=== PATIENT | male | born 1980 | race African-American/Black ===

== ENCOUNTER 2018-12-07 19:03 | Emergency (ER) | payer OTHER, SELFPAY ==
[2018-12-07 19:19] VITALS: BP 130/79; PULSE 83; RESP 14; TEMP 36.7; O2SAT 98; BMI 27.8
--- NOTE | 2018-12-07 19:24 | DI.RAD.S_ITS ---
PROCEDURE: XR FOOT RT MIN 3V INDICATIONS: tripped while walking down step. Having pain and swelling TECHNIQUE: 3 views of the foot were acquired. COMPARISON: None. FINDINGS: Bones: No fractures or dislocations. No suspicious bony lesions. Soft tissues: No tibiotalar joint effusion. Achilles tendon appears normal. IMPRESSION: No fracture. No osseous lesion. If symptoms and/or clinical suspicion for pathology persists, further assessment with repeat radiographs (7-10 days) or advanced imaging (e.g. CT, MRI or bone scan) may be helpful. Dictated by: Ines Cutler MD, PhD on 12/07/2018 at 19:51 Approved by: Ines Cutler MD, PhD on 12/07/2018 at 19:52
[2018-12-07] MEDS: KETOROLAC 60 MG/2 ML VIAL IM (20:11)
[2018-12-07 20:37] VITALS: RESP 16
--- NOTE | 2018-12-07 20:56 | ED.LOWEXIN ---
HPI - Extremity Injury (Lower) <DARIANA Arias - Last Filed: 12/07/18 20:59> General Chief Complaint: Extremity Injury, Lower Stated Complaint: RIGHT FOOT SMALL TOE INJURY Time Seen by Provider: 12/07/18 19:44 Source: patient and family Mode of arrival: ambulatory Limitations: no limitations History of Present Illness HPI Narrative: The patient is a 38-year-old current smoker with history of right foot surgery who presents with a chief complaint of foot pain. It started on Friday, he was going down the stairs in slide shoes and felt his foot twist. He felt a pop. He has taken some ibuprofen, but nothing today. He is concerned about a fracture. He denies any numbness or tingling. Denies any other injury. Related Data Home Medications Medication Instructions Recorded Confirmed bupropion HCl 300 mg PO QDAY #0 09/26/16 gabapentin 100 mg PO QDAY #0 09/26/16 sertraline [Zoloft] #0 09/26/16 trazodone 50 mg PO QDAY #0 09/26/16 Allergies Allergy/AdvReac Type Severity Reaction Status Date / Time No Known Drug Allergies Allergy Verified 12/07/18 19:24 Review of Systems <DARIANA Arias - Last Filed: 12/07/18 20:59> Review of Systems GENERAL: Denies chills, fatigue, malaise, fever, sweats. HEENT: Denies sinus pain, ear pain, sore throat, difficulty swallowing, dizziness. RESPIRATORY: Denies dyspnea, cough, wheezing, hemoptysis, sputum. CARDIOVASCULAR: Denies chest pain, palpitations, orthopnea, edema, GASTROINTESTINAL: Denies nausea, vomiting, abdominal pain, diarrhea, constipation, melena. : Denies dysuria, frequency, incontinence, hematuria, urinary retention. MUSCULOSKELETAL: See HPI SKIN: See HPI NEUROLOGIC: Denies weakness, headache, numbness, change in speech, confusion, seizures, incoordination. PSYCHIATRIC: No concerning psychosocial issues. 12 point review of systems is negative except for those stated above PFSH <DARIANA Arias - Last Filed: 12/07/18 20:59> Social History Smoking Status: Current every day smoker Social History Smoking Status: Current every day smoker Exam <DARIANA Arias - Last Filed: 12/07/18 20:59> Narrative Exam Narrative: GENERAL: This is a well-nourished, well-developed patient no acute distress HEAD: Atraumatic. Normocephalic. No temporal or scalp tenderness. EYES: Pupils equal round and reactive. Extraocular motions intact. No scleral icterus. No injection or drainage. ENT: Nose without bleeding, purulent drainage or septal hematoma. Throat without erythema, tonsillar hypertrophy or exudate. Uvula midline. Airway patent. NECK: Trachea midline. No JVD or lymphadenopathy. Supple, nontender, no meningeal signs. CARDIOVASCULAR: Regular rate and rhythm RESPIRATORY: No cough. No increased respiratory effort. No accessory muscle use. EXTREMITIES: Pain to palpation of right foot. Positive pedal pulses. Capillary refill less than 2 seconds. SKIN: Ecchymosis noted over navicular of right foot. Skin is intact. No laceration or abrasion. Initial Vital Signs Initial Vital Signs: Vital Signs Temperature 98.1 F 12/07/18 19:19 Pulse Rate 83 12/07/18 19:19 Respiratory Rate 14 12/07/18 19:19 Blood Pressure 130/79 12/07/18 19:19 Pulse Oximetry 98 12/07/18 19:19 <DO Cj Albarado Last Filed: 12/08/18 01:32> Initial Vital Signs Initial Vital Signs: Vital Signs Temperature 98.1 F 12/07/18 19:19 Pulse Rate 83 12/07/18 19:19 Respiratory Rate 14 12/07/18 19:19 Blood Pressure 130/79 12/07/18 19:19 Pulse Oximetry 98 12/07/18 19:19 Course <JOAO Arias-BC - Last Filed: 12/07/18 20:59> Orders Ordered: ED Orders 12/07/18 19:24 XR foot RT min 3V Stat Discontinued Medications Ketorolac Tromethamine (Toradol) 60 mg IM NOW ONE Stop: 12/07/18 19:51 Last Admin: 12/07/18 20:11 Dose: 60 mg Vital Signs - 8 hr 12/07/18 19:19 12/07/18 20:37 Temperature 98.1 F Pulse Rate 83 Respiratory Rate 14 16 Blood Pressure 130/79 Pulse Oximetry 98 <DO Cj Albarado Last Filed: 12/08/18 01:32> Orders Ordered: ED Orders 12/07/18 19:24 XR foot RT min 3V Stat Discontinued Medications Ketorolac Tromethamine (Toradol) 60 mg IM NOW ONE Stop: 12/07/18 19:51 Last Admin: 12/07/18 20:11 Dose: 60 mg Vital Signs - 8 hr 12/07/18 19:19 12/07/18 20:37 Temperature 98.1 F Pulse Rate 83 Respiratory Rate 14 16 Blood Pressure 130/79 Pulse Oximetry 98 MDM - Extremity Injury (Lower) <ERNESTINA Arias - Last Filed: 12/07/18 20:59> Imaging Data Foot x-ray: Radiologist's impression: [address] [address] XRay Report Signed Patient: Elinor Mccracken JMR#: [id number] : 1980Acct:[id number] Age/Sex: 38 / MDate of Service: 12/07/18 Loc: ED Accession Number: [id number] Procedure: XR foot RT min 3V Ordering Provider: Nadir Oneil D.O. PROCEDURE: XR FOOT RT MIN 3V INDICATIONS: tripped while walking down step. Having pain and swelling TECHNIQUE: 3 views of the foot were acquired. COMPARISON: None. FINDINGS: Bones: No fractures or dislocations. No suspicious bony lesions. Soft tissues: No tibiotalar joint effusion. Achilles tendon appears normal. IMPRESSION: No fracture. No osseous lesion. If symptoms and/or clinical suspicion for pathology persists, further assessment with repeat radiographs (7-10 days) or advanced imaging (e.g. CT, MRI or bone scan) may be helpful. Dictated by: Ines Cutler MD, PhD on 12/07/2018 at 19:51 Approved by: Ines Cutler MD, PhD on 12/07/2018 at 19:52 [facility] Narrative Medical decision making narrative: The patient is a 30-year-old male who presents with chief complaint of foot pain. He has a negative x-ray. He is neurovascularly intact. I discussed the possibility of an occult fracture. Encouraged rest ice compression elevation as well as [id number] pain medications as needed and able. Discussed follow-up with PCP. Discussed coming back to the ER for any acute concerns. Patient has no questions or concerns upon discharge. He states understanding of follow-up and return precautions. He is given Toradol in the emergency department for pain. Discharge Plan Departure Patient Disposition: Home Clinical Impression: Acute foot pain Qualifiers: Laterality: right Qualified Code(s): M79.671 - Pain in right foot Discharge Date/Time: 12/07/18 20:37 Interventions: ED Discharge Assessment Last Done: 12/07/18 20:37 Instructions: DI for Contusion, How To Perform RICE (Rest, Ice, Compress, Elevate), DI for Foot Pain Activity Restrictions/Additional Instructions: Your x-ray today came back with no fracture. Be aware there can be an occult fracture. Please use rest ice compression elevation as well as [id number] pain medications as needed And able. Please follow up with primary care provider. Please come back to the emergency department for any acute concerns such as chest pain, shortness of breath etc Prescriptions: No Action sertraline [Zoloft] 100 MG tablet Qty: 0 RF: 0 bupropion HCl 300 MG tablet extended release 24 hr 300 mg PO QDAY Qty: 0 RF: 0 trazodone 50 MG tablet 50 mg PO QDAY Qty: 0 RF: 0 gabapentin 100 MG capsule 100 mg PO QDAY Qty: 0 RF: 0 <Nadir Oneil DO - Last Filed: 12/08/18 01:32> Beth ED Attending Deisi Attestation: I was immediately available in the department for consultation. Documentation has been reviewed. I agree with assessment and plan.
--- NOTE | 2018-12-07 20:59 | ED_ITS ---
HPI - Extremity Injury (Lower) <DARIANA Arias - Last Filed: 12/07/18 20:59> General Chief Complaint: Extremity Injury, Lower Stated Complaint: RIGHT FOOT SMALL TOE INJURY Time Seen by Provider: 12/07/18 19:44 Source: patient and family Mode of arrival: ambulatory Limitations: no limitations History of Present Illness HPI Narrative: The patient is a 38-year-old current smoker with history of right foot surgery who presents with a chief complaint of foot pain. It started on Friday, he was going down the stairs in slide shoes and felt his foot twist. He felt a pop. He has taken some ibuprofen, but nothing today. He is concerned about a fracture. He denies any numbness or tingling. Denies any other injury. Related Data Home Medications Medication Instructions Recorded Confirmed bupropion HCl 300 mg PO QDAY #0 09/26/16 gabapentin 100 mg PO QDAY #0 09/26/16 sertraline [Zoloft] #0 09/26/16 trazodone 50 mg PO QDAY #0 09/26/16 Allergies Allergy/AdvReac Type Severity Reaction Status Date / Time No Known Drug Allergies Allergy Verified 12/07/18 19:24 Review of Systems <DARIANA Arias - Last Filed: 12/07/18 20:59> Review of Systems GENERAL: Denies chills, fatigue, malaise, fever, sweats. HEENT: Denies sinus pain, ear pain, sore throat, difficulty swallowing, dizziness. RESPIRATORY: Denies dyspnea, cough, wheezing, hemoptysis, sputum. CARDIOVASCULAR: Denies chest pain, palpitations, orthopnea, edema, GASTROINTESTINAL: Denies nausea, vomiting, abdominal pain, diarrhea, constipation, melena. : Denies dysuria, frequency, incontinence, hematuria, urinary retention. MUSCULOSKELETAL: See HPI SKIN: See HPI NEUROLOGIC: Denies weakness, headache, numbness, change in speech, confusion, seizures, incoordination. PSYCHIATRIC: No concerning psychosocial issues. 12 point review of systems is negative except for those stated above PFSH <DARIANA Arias - Last Filed: 12/07/18 20:59> Social History Smoking Status: Current every day smoker Social History Smoking Status: Current every day smoker Exam <DARIANA Arias - Last Filed: 12/07/18 20:59> Narrative Exam Narrative: GENERAL: This is a well-nourished, well-developed patient no acute distress HEAD: Atraumatic. Normocephalic. No temporal or scalp tenderness. EYES: Pupils equal round and reactive. Extraocular motions intact. No scleral icterus. No injection or drainage. ENT: Nose without bleeding, purulent drainage or septal hematoma. Throat without erythema, tonsillar hypertrophy or exudate. Uvula midline. Airway patent. NECK: Trachea midline. No JVD or lymphadenopathy. Supple, nontender, no meningeal signs. CARDIOVASCULAR: Regular rate and rhythm RESPIRATORY: No cough. No increased respiratory effort. No accessory muscle use. EXTREMITIES: Pain to palpation of right foot. Positive pedal pulses. Capillary refill less than 2 seconds. SKIN: Ecchymosis noted over navicular of right foot. Skin is intact. No laceration or abrasion. Initial Vital Signs Initial Vital Signs: Vital Signs Temperature 98.1 F 12/07/18 19:19 Pulse Rate 83 12/07/18 19:19 Respiratory Rate 14 12/07/18 19:19 Blood Pressure 130/79 12/07/18 19:19 Pulse Oximetry 98 12/07/18 19:19 <DO Cj Albarado Last Filed: 12/08/18 01:32> Initial Vital Signs Initial Vital Signs: Vital Signs Temperature 98.1 F 12/07/18 19:19 Pulse Rate 83 12/07/18 19:19 Respiratory Rate 14 12/07/18 19:19 Blood Pressure 130/79 12/07/18 19:19 Pulse Oximetry 98 12/07/18 19:19 Course <JOAO Arias-BC - Last Filed: 12/07/18 20:59> Orders Ordered: ED Orders 12/07/18 19:24 XR foot RT min 3V Stat Discontinued Medications Ketorolac Tromethamine (Toradol) 60 mg IM NOW ONE Stop: 12/07/18 19:51 Last Admin: 12/07/18 20:11 Dose: 60 mg Vital Signs - 8 hr 12/07/18 19:19 12/07/18 20:37 Temperature 98.1 F Pulse Rate 83 Respiratory Rate 14 16 Blood Pressure 130/79 Pulse Oximetry 98 <DO Cj Albarado Last Filed: 12/08/18 01:32> Orders Ordered: ED Orders 12/07/18 19:24 XR foot RT min 3V Stat Discontinued Medications Ketorolac Tromethamine (Toradol) 60 mg IM NOW ONE Stop: 12/07/18 19:51 Last Admin: 12/07/18 20:11 Dose: 60 mg Vital Signs - 8 hr 12/07/18 19:19 12/07/18 20:37 Temperature 98.1 F Pulse Rate 83 Respiratory Rate 14 16 Blood Pressure 130/79 Pulse Oximetry 98 MDM - Extremity Injury (Lower) <ERNESTINA Arias - Last Filed: 12/07/18 20:59> Imaging Data Foot x-ray: Radiologist's impression: [address] [address] XRay Report Signed Patient: Elinor Mccracken JMR#: [id number] : 1980Acct:[id number] Age/Sex: 38 / MDate of Service: 12/07/18 Loc: ED Accession Number: [id number] Procedure: XR foot RT min 3V Ordering Provider: Nadir Oneil D.O. PROCEDURE: XR FOOT RT MIN 3V INDICATIONS: tripped while walking down step. Having pain and swelling TECHNIQUE: 3 views of the foot were acquired. COMPARISON: None. FINDINGS: Bones: No fractures or dislocations. No suspicious bony lesions. Soft tissues: No tibiotalar joint effusion. Achilles tendon appears normal. IMPRESSION: No fracture. No osseous lesion. If symptoms and/or clinical suspicion for pathology persists, further assessment with repeat radiographs (7-10 days) or advanced imaging (e.g. CT, MRI or bone scan) may be helpful. Dictated by: Ines Cutler MD, PhD on 12/07/2018 at 19:51 Approved by: Ines Cutler MD, PhD on 12/07/2018 at 19:52 [facility] Narrative Medical decision making narrative: The patient is a 30-year-old male who presents with chief complaint of foot pain. He has a negative x-ray. He is neurovascularly intact. I discussed the possibility of an occult fracture. Encouraged rest ice compression elevation as well as [id number] pain medications as needed and able. Discussed follow-up with PCP. Discussed coming back to the ER for any acute concerns. Patient has no questions or concerns upon discharge. He states understanding of follow-up and return precautions. He is given Toradol in the emergency department for pain. Discharge Plan Departure Patient Disposition: Home Clinical Impression: Acute foot pain Qualifiers: Laterality: right Qualified Code(s): M79.671 - Pain in right foot Discharge Date/Time: 12/07/18 20:37 Interventions: ED Discharge Assessment Last Done: 12/07/18 20:37 Instructions: DI for Contusion, How To Perform RICE (Rest, Ice, Compress, Elev ate), DI for Foot Pain Activity Restrictions/Additional Instructions: Your x-ray today came back with no fracture. Be aware there can be an occult fracture. Please use rest ice compression elevation as well as [id number] pain medications as needed And able. Please follow up with primary care provider. Please come back to the emergency department for any acute concerns such as chest pain, shortness of breath etc Prescriptions: No Action sertraline [Zoloft] 100 MG tablet Qty: 0 RF: 0 bupropion HCl 300 MG tablet extended release 24 hr 300 mg PO QDAY Qty: 0 RF: 0 trazodone 50 MG tablet 50 mg PO QDAY Qty: 0 RF: 0 gabapentin 100 MG capsule 100 mg PO QDAY Qty: 0 RF: 0 <Nadir Oneil DO - Last Filed: 12/08/18 01:32> Beth ED Attending Deisi Attestation: I was immediately available in the department for consultation. Documentation has been reviewed. I agree with assessment and plan.
== END 2018-12-07 20:37 | disposition home or self-care (01) ==
PROVIDERS: Emergency Provider Nurse Practitioner Family
DX: M79.671 Pain in right foot (principal)
CPT/HCPCS: 73630; 96372; 99282; 99283; J1885

== ENCOUNTER 2022-10-30 16:06 | Observation (INO) | payer OTHER, SELFPAY ==
[2022-10-30] VITALS (11 sets, daily range): BP systolic 126–169; BP diastolic 75–94; PULSE 61–72; RESP 16–18; TEMP 36.1–36.4; O2SAT 98–100; BMI 19.1
[2022-10-30 17:02] LABS: Add Manual Diff / Slide Review NO; Basophils Absolute Auto 100 /uL (0-100); Basophils Percent Auto 0.9 % (0-2); Eosinophils Absolute Auto 100 /uL (0-450); Eosinophils Percent Auto 0.6 % (2-4); Hematocrit 40.6 % (41-53); Hemoglobin 13.6 g/dL (13.5-17.5); Lymphocytes Absolute Auto 1500 /uL (1100-4500); Lymphocytes Percent Auto 14.1 % (25-40); Mean Corpuscular HGB Conc 33.5 % (30-36); Mean Corpuscular Hemoglobin 29.1 PG (26-34); Mean Corpuscular Volume 86.8 fL (80-100); Monocytes Absolute Auto 600 /uL (0-900); Monocytes Percent Auto 5.5 % (3-14); Neutrophils Absolute Auto 8200 /uL (1500-7000); Neutrophils Percent Auto 78.9 % (50-75); Platelet Count 248 X10^3/uL (150-400); Red Blood Cell Count 4.68 X10^6/uL (4.5-5.9); Red Cell Distribution Width 14.1 % (11.6-14.8); White Blood Cell Count 10.4 X10^3/uL (4.5-11.0)
[2022-10-30 17:09] LABS: Alanine Aminotransferase 20 IU/L (<50); Albumin 4.1 g/dL (3.5-5.0); Albumin Globulin Ratio 1.3 (1.0-2.8); Alkaline Phosphatase 50 U/L (38-126); Aspartate Aminotransferase 23 IU/L (17-59); BUN Creatinine Ratio 10.2 (6-22); Bilirubin Total 0.3 mg/dL (0.2-1.3); Blood Urea Nitrogen 9 mg/dL (9-20); Calcium 8.8 mg/dL (8.4-10.2); Carbon Dioxide 30 mmol/L (22-32); Chloride 103 mmol/L (98-107); Estimated Glomerular Filt Rate > 60 mL/min (>60); Globulin 3.1 g/dL (1.7-4.1); Glucose 87 mg/dL (70-100); HEMOLYSIS 25 (0-50); Lipase 66 U/L (23-300); Potassium 3.9 mmol/L (3.4-5.1); Sodium 140 mmol/L (137-145); Total Protein 7.2 g/dL (6.3-8.2)
--- NOTE | 2022-10-30 18:54 | ED.ABDPAIN ---
HPI - Abdominal Pain General Chief Complaint: Abdominal Pain Stated Complaint: lower abd pain, possible appendicitis Time Seen by Provider: 10/30/22 16:29 Source: patient Mode of arrival: Wheelchair History of Present Illness HPI narrative: Patient here for right lower quadrant pain. CT scan done in [facility] showed acute appendicitis. Patient chose to drive back home here to have [place] Fiance at bedside. Denies any allergies medications. No fever chills. No urinary complaints. No vomiting or diarrhea. No black or bloody stools. Related Data Home Medications Medication Instructions Recorded Confirmed bupropion HCl 300 mg 24 hr tablet, 300 mg PO QDAY ##0 09/26/16 extended release gabapentin 100 mg capsule 100 mg PO QDAY ##0 09/26/16 sertraline 100 mg tablet (Zoloft) 200 mg PO DAILY ##0 09/26/16 10/30/22 trazodone 50 mg tablet 50 mg PO QDAY ##0 09/26/16 Allergies Allergy/AdvReac Type Severity Reaction Status Date / Time No Known Drug Allergies Allergy Verified 10/30/22 16:25 Review of Systems Review of Systems Narrative: GENERAL: negative chills, fatigue, malaise, fever, sweats. HEENT: negative sinus pain, ear pain, sore throat RESPIRATORY: negative dyspnea, cough CARDIOVASCULAR: negative chest pain, palpitations GASTROINTESTINAL: Positive nausea, negative vomiting, positive abdominal pain : negative dysuria, frequency, hematuria MUSCULOSKELETAL: negative muscle or bony pain SKIN: negative rash, skin lesions NEUROLOGIC: negative weakness, numbness ROS Unobtainable: All systems reviewed & are unremarkable except as noted in HPI and below Patient History Social History household members: spouse and children Smoking Status: Current every day smoker alcohol intake: current Smoking Status: Current every day smoker tobacco type: cigarettes alcohol intake frequency: holidays/special occasions only Substance Use Type: marijuana Exam Narrative Exam Narrative: GENERAL: in no distress, not toxic not dyspneic HEAD: Normocephalic. EYES: Pupils equal round ENT: Mucous membranes moist. NECK: Trachea midline. CARDIOVASCULAR: Regular rate and rhythm without murmurs RESPIRATORY: Clear to auscultation. Breath sounds equal bilaterally. No wheezes, rales, or rhonchi. GASTROINTESTINAL: Abdomen soft, abdomen soft and flat but there is McBurney point tenderness. No pain out of proportion to exam. No rebound tenderness. EXTREMITIES: No gross deformities. BACK: No flank tenderness. NEURO: AOx4. SKIN: Warm and dry PSYCH: Not anxious, is cooperative Initial Vital Signs Initial Vital Signs: Vital Signs Temperature 97.6 F 10/30/22 16:19 Pulse Rate 68 10/30/22 16:19 Respiratory Rate 18 10/30/22 16:19 Blood Pressure 141/89 H 10/30/22 16:19 Pulse Oximetry 99 10/30/22 16:19 Oxygen Delivery Method Room Air 10/30/22 16:19 Course Orders Ordered: Celecoxib (Celecoxib 200 Mg Capsule) 200 mg PO BID [facility] Last Admin: 10/30/22 21:58 Dose: 200 mg Documented By: FRED Gabapentin (Gabapentin 300 Mg Capsule) 300 mg PO TID [facility] Last Admin: 10/30/22 21:59 Dose: 300 mg Documented By: FRED Hydromorphone HCl (Hydromorphone 0.5 Mg Inj) 0.5 mg IV Q4H PRN PRN Reason: Pain, Moderate (4-6) Last Admin: 10/31/22 02:47 Dose: 0.5 mg Documented By: Admin: 10/30/22 21:58 Dose: 0.5 mg Documented By: FRED Piperacillin Sod/Tazobactam (Sod 4.5 gm/ Sodium Chloride) 100 mls @ 25 mls/hr IV Q8H [facility] Last Admin: 10/30/22 21:26 Dose: Not Given Documented By: FRED Discontinued Medications Sodium Chloride (Normal Saline 0.9%) 1,000 mls @ 1,000 mls/hr IV BOLUS ONE Stop: 10/30/22 20:29 Last Admin: 10/30/22 20:46 Dose: 1,000 mls/hr Documented By: FRED Piperacillin Sod/Tazobactam (Sod 4.5 gm/ Sodium Chloride) 100 mls @ 200 mls/hr IV NOW ONE Stop: 10/30/22 19:31 Last Infusion: 10/30/22 21:22 Dose: 25 mls/hr Documented By: Admin: 10/30/22 20:50 Dose: 200 mls/hr Documented By: FRED Morphine Sulfate (Morphine 4 Mg/Ml Inj) 4 mg IV NOW ONE Stop: 10/30/22 19:30 Last Admin: 10/30/22 19:43 Dose: 4 mg Documented By: SANDRA Ondansetron HCl (Ondansetron 4 Mg/2 Ml Inj) 4 mg IV NOW ONE Stop: 10/30/22 19:30 Last Admin: 10/30/22 19:43 Dose: 4 mg Documented By: SANDRA Vital Signs Vital signs: Vital Signs - 8 hr 10/30/22 16:19 10/30/22 17:02 10/30/22 17:04 Temperature 97.6 F Pulse Rate 68 70 Respiratory Rate 18 Blood Pressure 141/89 H 143/87 H Pulse Oximetry 99 100 Oxygen Delivery Method Room Air 10/30/22 17:04 10/30/22 17:05 10/30/22 17:05 Temperature Pulse Rate 72 71 Respiratory Rate Blood Pressure 131/85 Pulse Oximetry 98 100 Oxygen Delivery Method 10/30/22 17:30 10/30/22 17:30 10/30/22 18:00 Temperature Pulse Rate 63 Respiratory Rate Blood Pressure 135/80 126/75 Pulse Oximetry 100 Oxygen Delivery Method 10/30/22 18:00 10/30/22 18:30 10/30/22 18:30 Temperature Pulse Rate 62 67 Respiratory Rate Blood Pressure 169/91 H Pulse Oximetry 98 100 Oxygen Delivery Method MDM - Abdominal Pain Lab Data 10/30/22 16:40 10/30/22 16:40 Labs: Lab Results 10/30/22 10/30/22 Range/Units 16:40 16:40 WBC 10.4 (4.5-11.0) X10^3/uL RBC 4.68 (4.5-5.9) X10^6/uL Hgb 13.6 (13.5-17.5) g/dL Hct 40.6 L (41-53) % MCV 86.8 (80-100) fL MCH 29.1 (26-34) PG MCHC 33.5 (30-36) % RDW 14.1 (11.6-14.8) % Plt Count 248 (150-400) X10^3/uL Neut % (Auto) 78.9 H (50-75) % Lymph % (Auto) 14.1 L (25-40) % [place] % (Auto) 5.5 (3-14) % Eos % (Auto) 0.6 L (2-4) % Baso % (Auto) 0.9 (0-2) % Neut # (Auto) 8200 H (6789-4177) /uL Lymph # (Auto) 1500 (8571-2701) /uL [place] # (Auto) 600 (0-900) /uL Eos # (Auto) 100 (0-450) /uL Baso # (Auto) 100 (0-100) /uL Sodium 140 (137-145) mmol/L Potassium 3.9 (3.4-5.1) mmol/L Chloride 103 (98-107) mmol/L Carbon Dioxide 30 (22-32) mmol/L BUN 9 (9-20) mg/dL Creatinine 0.88 (0.66-1.25) mg/dL Estimated GFR > 60 (>60) mL/min BUN/Creatinine Ratio 10.2 (6-22) Glucose 87 (70-100) mg/dL Calcium 8.8 (8.4-10.2) mg/dL Total Bilirubin 0.3 (0.2-1.3) mg/dL AST 23 (17-59) IU/L ALT 20 (<50) IU/L Alkaline Phosphatase 50 (38-126) U/L Total Protein 7.2 (6.3-8.2) g/dL Albumin 4.1 (3.5-5.0) g/dL Globulin 3.1 (1.7-4.1) g/dL Albumin/Globulin Ratio 1.3 (1.0-2.8) Lipase 66 (23-300) U/L [facility] Narrative Medical decision making narrative: Patient here for right lower quadrant pain. CT scan done in [facility] showed acute appendicitis. Patient chose to drive back [place] here to have surgery [place] Fiance at bedside. Denies any allergies medications. No fever chills. No urinary complaints. No vomiting or diarrhea. No black or bloody stools. After history and exam CBC CMP morphine Zofran Zosyn [facility] CC: Abdominal pain Complicating co-morbidities: None Data collected from: Patient Medical records reviewed: Records from [facility] emergency Department Differential considered: Includes but not limited to appendicitis Exam documented above, pertinent findings include: McBurney point tenderness Lab Test results independently reviewed as above. Pertinent findings: WBC 10.4 Imaging studies independently reviewed: CT report from [facility] positive for appendicitis Consultations: 6:[address] Riggins, general surgeon, she is aware of patient's arrival. She will admit patient. Desires patient to have Zosyn. She will place admission orders. Surgery will be tomorrow. Treatments: Morphine normal saline Zofran Zosyn Re-evaluations: Patient is aware he will be admitted tonight. He will have surgery tomorrow. He agrees with plan. Discussion: Appropriate for admission for surgical intervention. Patient will have surgery tomorrow morning. Antibiotics have been started. Pain is controlled. Diagnosis: Acute appendicitis Discharge Plan Departure Patient Disposition: Admitted as Observation Clinical Impression: Acute appendicitis Admit Date/Time: 10/30/22 18:46 Admit Provider: Jeimy Riggins
[2022-10-30] MEDS: ONDANSETRON 4 MG/2 ML INJ IV (19:43)
[2022-10-30] MEDS: MORPHINE 4 MG/ML INJ IV (19:43)
[2022-10-30] MEDS: SODIUM CHLORIDE 0.9% 1,000 ML 1000 ML IV (20:46)
[2022-10-30] MEDS: PIPERACILLIN/TAZO 4.5 GM in SODIUM CHLORIDE 0.9% 100 ML IV (20:50)
[2022-10-30] MEDS: HYDROMORPHONE 0.5 MG INJ IV (21:58)
[2022-10-30] MEDS: CELECOXIB 200 MG CAPSULE PO (21:58)
[2022-10-30] MEDS: GABAPENTIN 300 MG CAPSULE PO (21:59)
[2022-10-31] VITALS (9 sets, daily range): BP systolic 125–168; BP diastolic 77–98; PULSE 58–87; RESP 16–17; TEMP 36.2–36.8; O2SAT 98–100; BMI 19.1
--- NOTE | 2022-10-31 | PATH_ITS ---
[facility] Accession Number: [id number] No. of containers..01 Tissue . 01 Material submitted: . appendix - APPENDIX . 01 Diagnosis: Vermiform Appendix, Appendectomy: Focal mild acute inflammation of lumenal epithelium, consistent with acute appendicitis. Negative for neoplasia. MRV 11/06/2022 1819 Local . 01 Electronically signed: . Jeimy Verdugo MD, Pathologist NPI- [id number] . 01 Gross description: . The specimen is received in formalin labeled with the patient's name, , and appendix, and consists of a vermiform appendix measuring 6.2 cm in length by 0.7 cm in diameter with kwok, roughened serosa. The margin is inked blue. Sectioning reveals a patent lumen filled with brown semisolid material ranging from 0.2 cm to 0.4 cm in greatest dimension and kwok davies that average 0.3 cm thick with no perforations or lesions identified. Beef Pluck Trimmer sections to include one-half of the bisected distal tip, margin, and cross sections are submitted in cassette A1. ([id number]) /[facility] 11/02/2022 [facility]7 Local . 01 Pathologist provided ICD-10: K35.80 . 01 CPT . 512472 Specimen Comment: A courtesy copy of this report has been sent to [phone] Performed at: [address] [address], [place], [place] [id number] MD Jose De Jesus Bennett MD Phone: [phone]
[2022-10-31] MEDS: HYDROMORPHONE 0.5 MG INJ IV ×2 (02:47→08:27)
[2022-10-31] MEDS: PIPERACILLIN/TAZO 4.5 GM in SODIUM CHLORIDE 0.9% 100 ML IV (05:45)
--- NOTE | 2022-10-31 06:52 | PC.NURSE ---
assumed care of patient at 2300: a/o, voices needs. ind w/ mobility and ADLs. slept most of the night. 2400: NPO for possible surgery in AM: removed ice water from room, provided w/ swabs and small amount of ice water to keep oral mucosa moist. patient grimacing w/ moving around, c/o RLQ 610, prn dilauded IVP given w/ good effect. tolerating IV abx, denies n/v. afebrile. call light w/in reach.
[2022-10-31] MEDS: CELECOXIB 200 MG CAPSULE PO (08:27)
[2022-10-31] MEDS: GABAPENTIN 300 MG CAPSULE PO (08:27)
[2022-10-31] MEDS: OXYCODONE 5 MG/5 ML ORAL SOLUTION 10 MG PO (11:10)
[2022-10-31] MEDS: HYDROMORPHONE 1 MG INJ IV (11:11)
--- NOTE | 2022-10-31 13:35 | P.HP_ITS ---
History of Present Illness History of Present Illness Date Patient Seen: 10/31/22 Time Patient Seen: 13:35 Chief complaint: lower abd pain, possible appendicitis Narrative: RLQ pain starting yesterday with CT scan from outside hospital showing early appendicitis. Pt preferred flying back home and having surgery here. Still having some pain. Sharp in nature with RLQ tenderness. [facility] Social History household members: spouse and children Smoking Status: Current every day smoker alcohol intake: current Meds Home Medications and Allergies Home Medications Medication Instructions Recorded Confirmed Type bupropion HCl 300 mg 24 hr tablet, 300 mg PO QDAY ##0 09/26/16 10/31/22 History extended release gabapentin 100 mg capsule 100 mg PO QDAY ##0 09/26/16 10/31/22 History sertraline 100 mg tablet (Zoloft) 200 mg PO DAILY ##0 09/26/16 10/30/22 History trazodone 50 mg tablet 50 mg PO QDAY ##0 09/26/16 10/31/22 History Allergies Allergy/AdvReac Type Severity Reaction Status Date / Time No Known Drug Allergies Allergy Verified 10/30/22 16:25 Review of Systems Review of Systems ROS: Yes All systems reviewed with the patient and are negative except as otherwise documented Exam Vital Signs (past 8 hours): - 10/31/22 10:16 Temperature 97.1 F L Pulse Rate 58 L Respiratory Rate 17 Blood Pressure 125/77 Pulse Oximetry 98 Oxygen Flow Rate 0 Oxygen Delivery Method Room Air Oxygen Flow Rate 0 Const General: cooperative, healthy appearing and comfortable [facility] Head: normocephalic and atraumatic Eyes General: appearance normal, both eyes and all related structures Sclera: sclerae normal Neck Neck: trachea midline Chest Chest: normal inspection of the chest Resp Effort & Inspection: normal respiratory effort and able to speak in complete sentences Cardio Rate: regular rate Rhythm: regular rhythm GI Inspection: normal to inspection Palpation: soft and tender (RLQ) Skin General: elasticity normal and turgor normal Neuro General: patient alert, patient awake and patient oriented x3 Psych Mental Status: mental status grossly normal Judgment: judgment good Objective Labs 10/30/22 16:40 10/30/22 16:40 Labs: Laboratory Results - last 24 hr 10/30/22 10/30/22 16:40 16:40 WBC 10.4 RBC 4.68 Hgb 13.6 Hct 40.6 L MCV 86.8 MCH 29.1 MCHC 33.5 RDW 14.1 Plt Count 248 Neut % (Auto) 78.9 H Lymph % (Auto) 14.1 L [place] % (Auto) 5.5 Eos % (Auto) 0.6 L Baso % (Auto) 0.9 Neut # (Auto) 8200 H Lymph # (Auto) 1500 [place] # (Auto) 600 Eos # (Auto) 100 Baso # (Auto) 100 Sodium 140 Potassium 3.9 Chloride 103 Carbon Dioxide 30 BUN 9 Creatinine 0.88 Estimated GFR > 60 BUN/Creatinine Ratio 10.2 Glucose 87 Calcium 8.8 Total Bilirubin 0.3 AST 23 ALT 20 Alkaline Phosphatase 50 Total Protein 7.2 Albumin 4.1 Globulin 3.1 Albumin/Globulin Ratio 1.3 Lipase 66 Assessment & Plan Assessment & Plan narrative: Acute appendicitis IV antibiotics and Lap appy today. Time Spent With Patient Time with patient: less than 30 minutes
--- NOTE | 2022-10-31 15:30 | SUR.OPER ---
Supine on padded OR bed, head on pillow, RIGHT arm secured on padded arm board at <90 degrees abduction, legs uncrossed, safety belt at thigh, tape over blanket over lower legs. LEFT ARM TUCKED AT SIDE WITH DRAW SHEET.
[2022-10-31] MEDS: BUPIVACAINE 0.25% (PF) VIAL 20 ML INJ (15:38)
--- NOTE | 2022-10-31 15:53 | PM.HP.1 ---
History of Present Illness History of Present Illness Date Patient Seen: 10/31/22 Time Patient Seen: 15:54 Chief complaint: lower abd pain, possible appendicitis Narrative: RLQ pain starting yesterday with CT scan from outside hospital showing early appendicitis. Pt preferred flying back home and having surgery here. Still having some pain. Sharp in nature with RLQ tenderness. [facility] Social History household members: spouse and children Smoking Status: Current every day smoker alcohol intake: current Meds Home Medications and Allergies Home Medications Medication Instructions Recorded Confirmed Type bupropion HCl 300 mg 24 hr tablet, 300 mg PO QDAY ##0 09/26/16 10/31/22 History extended release gabapentin 100 mg capsule 100 mg PO QDAY ##0 09/26/16 10/31/22 History sertraline 100 mg tablet (Zoloft) 200 mg PO DAILY ##0 09/26/16 10/30/22 History trazodone 50 mg tablet 50 mg PO QDAY ##0 09/26/16 10/31/22 History Allergies Allergy/AdvReac Type Severity Reaction Status Date / Time No Known Drug Allergies Allergy Verified 10/30/22 16:25 Exam Vital Signs (past 8 hours): - 10/31/22 10:16 Temperature 97.1 F L Pulse Rate 58 L Respiratory Rate 17 Blood Pressure 125/77 Pulse Oximetry 98 Oxygen Flow Rate 0 Oxygen Delivery Method Room Air Oxygen Flow Rate 0 Objective Labs 10/30/22 16:40 10/30/22 16:40 Labs: Laboratory Results - last 24 hr 10/30/22 10/30/22 16:40 16:40 WBC 10.4 RBC 4.68 Hgb 13.6 Hct 40.6 L MCV 86.8 MCH 29.1 MCHC 33.5 RDW 14.1 Plt Count 248 Neut % (Auto) 78.9 H Lymph % (Auto) 14.1 L [place] % (Auto) 5.5 Eos % (Auto) 0.6 L Baso % (Auto) 0.9 Neut # (Auto) 8200 H Lymph # (Auto) 1500 [place] # (Auto) 600 Eos # (Auto) 100 Baso # (Auto) 100 Sodium 140 Potassium 3.9 Chloride 103 Carbon Dioxide 30 BUN 9 Creatinine 0.88 Estimated GFR > 60 BUN/Creatinine Ratio 10.2 Glucose 87 Calcium 8.8 Total Bilirubin 0.3 AST 23 ALT 20 Alkaline Phosphatase 50 Total Protein 7.2 Albumin 4.1 Globulin 3.1 Albumin/Globulin Ratio 1.3 Lipase 66
--- NOTE | 2022-10-31 15:54 | PM.OP.1 ---
Operative Date/Time/Diagnoses Date of procedure: 10/31/22 Time of procedure: 15:54 Pre-op diagnosis: Acute appendicitis Post-op diagnosis: same Procedure & Clinicians Procedure: Laparoscopic appendectomy Same procedure as scheduled: Yes Indications: Acute appendicitis Surgeon: Jeimy Riggins Click Yes if Unassisted: Yes Anesthesia Type: General Operative Notes Findings: Early stage I inflammatory appendicitis Closure Type: primary Specimen(s): other (Appendix) Estimated Blood Loss (mL): 2 Blood products transfused: none Procedure in detail: Preop diagnosis: Acute appendicitis Postop diagnosis: Same Operative procedure: Laparoscopic appendectomy Surgeon: Merle Riggins MD Findings: Stage I acute appendicitis Procedure: Patient placed in supine position. Prepped and draped in sterile fashion. Supraumbilical port site was placed using open technique a 12 mm port. Insufflation began all other ports were placed under direct vision including a 5 mm port in the suprapubic area and a 5 mm port in the left lateral abdomen. Appendix was identified and lifted cephalad for exposure. Lateral and mesenteric attachments were taken down with electrocautery and excellent hemostasis. The base of the appendix was cleared and healthy. A CLAUDY stapling device was used to amputate the appendix which was then placed into an Endo-Catch bag and pulled through the supraumbilical port site intact. Fascia of the umbilical port site was closed with interrupted 2-0 Vicryl. Skin was closed a running 4-0 Vicryl. Steri-Strips and sterile dressings were placed. Patient was awakened, extubated, taken to recovery room in stable condition. Needle, instrument, sponge counts were correct. Blood loss: 2 mL Findings: Stage I inflammatory appendicitis Complications: none Post-operative Condition: stable Disposition: PACU
--- NOTE | 2022-10-31 16:14 | CM.DANOTE ---
DCP Assessment: Patient is a 42yo M here under OBS status for acute appendicitis. Surgery with Dr. Riggins on 10/31. PCP: Myranda Donaldson Payer: select and self pay ANALYSIS MGR reviewed EMR. Per nursing staff, likely no needs from CM team upon d/c. ANALYSIS MGR entered room and introduced self and role. Patient was laying down and appeared A/Ox4, and was wincing often as if in a lot of pain. Patient was accompanied by zaid Otoole ([phone]). Patient is independent at baseline, drives, and leads an active lifestyle. Patient's fiance can help support him at home throughout recovery. Fiance can transport home in POV. Patient uses [facility]. Patient reports likely having no needs from CM team upon d/c. Patient asked for a business card from ANALYSIS MGR in case questions arise, which ANALYSIS MGR provided. Plan: patient will d/c home with fiance when medically stable, which per provider note will likely be post surgery later today 10/31 pending no complications. CM team will continue to follow as necessary. LILIAN Rosario Discharge Planning/Care Management CM Discharge Assessment Start: 10/31/22 16:12 Freq: Status: Active Protocol: Document 10/31/22 16:12 (Rec: 10/31/22 16:14 [id number]) Discharge Planning Assessment Assigned Office Technician LILIAN Ames DPOA/Assigned Designee Name Sydnie (zaid) Contact Information [phone] Advance Directives? No History Provided By Patient,Medical Record Prior Living Arrangements House Household Members spouse,children Type of transporation used prior to Drives own vehicle admit Independent with ADL's Yes Is patient alert and oriented? Yes Barriers to Discharge No Discharge Plan Home Transportation Arrangement fimichel in POV Whiteboard Updated in Patient Room with Yes name and ext. # of Office Technician Review Status In Process Next Review Type Continued Stay Review
[2022-10-31] MEDS: OXYCODONE IR 10 MG TABLET PO (17:05)
== END 2022-10-31 18:35 | disposition home or self-care (01) ==
LOC: ED 18:06 → AC 18:47
PROVIDERS: Emergency Medicine; Admitting Provider Surgery; Emergency Provider Emergency Medicine; PCP Nurse Practitioner Acute Care; Referring Provider Emergency Medicine; Visit Provider Surgery
PROC: 0DTJ4ZZ Resection of Appendix, Percutaneous Endoscopic Approach (ICD-10-PCS; CPT 44970; principal; 2022-10-31 14:30)
DX: K35.80 Unspecified acute appendicitis (principal); F17.200 Nicotine dependence, unspecified, uncomplicated
CPT/HCPCS: 44970; 36415; 80053; 83690; 85025; 99221; 99283; G0378; J0330; J1100; J1170; J1885; J2270; J2405; J2543; J2704; J3010; J3490